=== PATIENT | female | born 1975 | race Caucasian/White ===

== ENCOUNTER → 2016-09-22 | Outpatient (CLI) | payer OTHER ==
[~2016-09-22] MED LIST: EFFEXOR-XR37.5 MG PO; NEURONTIN100 MG OR; SPIRONOLACTONE25 MG NG; SYNTHROID0.112 MG PO
[2016-09-22 15:28] LABS: URINE BILIRUBIN - DIPSTICK NEGATIVE (NEG); URINE BLOOD NEGATIVE (NEG)
== END ==
LOC: LAB 15:16
PROVIDERS: Emergency Medicine
DX: R30.9 Painful micturition, unspecified (principal)

== ENCOUNTER → 2016-11-16 | Outpatient (CLI) | payer OTHER ==
[2016-11-16 09:01] LABS: HEMOGLOBIN 14.7 g/dL (12.2-16.2); LYMPH # 1.9 K/mm3 (0.7-4.5); LYMPH % 31.4 % (10-50.0)
[2016-11-17 12:41] LABS: Vitamin D, 25-Hydroxy 53.2 ng/mL (30.0-100.0)
== END ==
LOC: LAB 08:47
PROVIDERS: Internal Medicine
DX: D64.9 Anemia, unspecified (principal); E03.9 Hypothyroidism, unspecified

== ENCOUNTER → 2017-02-09 | Outpatient (CLI) | payer OTHER ==
--- NOTE | 2017-02-09 15:54 | RADIOLOGY REPORT PS360 ---
CHEST(2 VIEWS-NOT PORTABLE) Ordering Physician: Dina Velazco APRN Patient Age: 41 years: Female HISTORY: BRONCHITIS cough congestion sputum TECHNIQUE: PA and lateral chest COMPARISON no previous chest film but there is a:Previous AP and lateral thoracic spine study from 07/19/2014. Also a previous CT abdomen which includes lung bases from July 2015 FINDINGS There is volume loss lingula. Atelectasis along with apparent infiltrate at the lingula... Lingular airspace disease partially obscures the left heart border, and is nicely seen on the lateral view but no discrete pleural effusion evident. The left upper lung field is clear. The right lung is clear. Heart is normal in size. The kip and mediastinal structures unremarkable. Small calcified granuloma right lung base just above right hemidiaphragm again noted along with generous stable calcified right infrahilar lymph node-features reflecting old granulomatous disease IMPRESSION: - Lingular pneumonia and atelectasis Prominent airspace disease at lingula best seen on the lateral film, obscures the heart border on the frontal projection. Follow-up suggested in 2 `-3 weeks weeks
== END ==
LOC: RAD 15:05
DX: J40 Bronchitis, not specified as acute or chronic (principal)